=== PATIENT | female | born 1960 ===

== ENCOUNTER 2025-07-06 13:54 | Outpatient (RCR) | payer MEDICARE, SELFPAY | END 2025-07-07 14:16 | disposition home or self-care (01) | LOC: OT 13:54 | PROVIDERS: PCP Family Medicine; Visit Provider Psychiatry & Neurology Neurology | DX: G56.03 Carpal tunnel syndrome, bilateral upper limbs (principal) | CPT/HCPCS: 97165; 97760 ==